=== PATIENT | male | born 1965 | race Caucasian/White ===

== ENCOUNTER 2023-12-10 06:54 | Day surgery (SDC) | payer MEDICAID ==
[2023-12-10] VITALS (11 sets, daily range): BP systolic 144–171; BP diastolic 91–110; PULSE 65–92; RESP 16; TEMP 98.2; O2SAT 92–96
[~2023-12-10] VITALS: Ht 167.6 cm; Wt 100.3 kg
[2023-12-10] MEDS ORDERED: normal saline 1,000 ML IV SCH (07:25)
[2023-12-10] MEDS ORDERED: diphenhydrAMINE 25mg capsule PO PRN (07:25)
[2023-12-10] MEDS ORDERED: nitroGLYCERIN 0.4mg SUBLingual tab SL PRN ×2 (07:25→10:50)
[2023-12-10] MEDS ORDERED: LORazepam 0.5 MG tablet PO PRN (07:25)
[2023-12-10] MEDS ORDERED: insulin Lispro (HumaLOG) vial - multi-dose SQ SCH (07:30)
[2023-12-10] MEDS ORDERED: MESSAGE TO PHARMACY PO ONE (07:30)
[2023-12-10] MEDS ORDERED: DEXTROSE 15 GM of carb/4 tabs (each vial/BOTTLE has 4 tablets) PO PRN ×2 (07:30)
[2023-12-10] MEDS ORDERED: glucagon, human recombinant 1mg kit SUBCUT PRN (07:30)
[2023-12-10] MEDS ORDERED: dextrose 50%-water 50ml dispensing syringe IV PRN ×2 (07:30)
[2023-12-10] MEDS ORDERED: IBUP-1984 PO (07:53)
[2023-12-10] MEDS ORDERED: LISI20TA28 PO (07:53)
[2023-12-10] MEDS ORDERED: ATOR20TA66 PO (07:53)
[2023-12-10 07:55] LABS: BASOPHILS % (AUTO) 0.5 % (0-1); EOSINOPHILS # (AUTO) 0.1 X10'3 (0-0.9); EOSINOPHILS % (AUTO) 2.6 % (0-6); HEMATOCRIT 44.2 % (42.0-52.0); LYMPHOCYTES # (AUTO) 1.8 X10'3 (1.1-4.8); LYMPHOCYTES % (AUTO) 31.2 % (21-51); MEAN CORPUSCULAR HEMOGLOBIN 29.4 PG (27.0-31.0); MEAN CORPUSCULAR HGB CONC 34.1 g/dL (33.0-36.5); MEAN CORPUSCULAR VOLUME 86.2 FL (78-98); MEAN PLATELET VOLUME 8.9 FL (7.4-10.4); MONOCYTES # (AUTO) 0.6 X10'3 (0-0.9); MONOCYTES % (AUTO) 9.9 % (2-12); NEUTROPHILS # (AUTO) 3.2 X10'3 (1.8-7.7); NEUTROPHILS % (AUTO) 55.8 % (42-75); PLATELET COUNT 183 X10'3 (140-440); RED BLOOD COUNT 5.12 X10'6 (4.70-6.10); RED CELL DISTRIBUTION WIDTH 13.4 % (11.5-14.5); WHITE BLOOD COUNT 5.7 X10'3 (4.5-11.0)
[2023-12-10 08:04] LABS: APTT 26 SECONDS (22-32); PROTHROMBIN TIME 10.6 SECONDS (9.0-12.0)
[2023-12-10] MEDS ORDERED: fentaNYL/PF 50MCG/1 ML 2ML syringe ONE (08:27)
[2023-12-10] MEDS ORDERED: iohexol 350MG/ML 100ml bottle IV ONE (08:27)
[2023-12-10] MEDS ORDERED: iohexol 350 MG/ML 50ML vial IV ONE ×2 (08:27→09:58)
[2023-12-10] MEDS ORDERED: midazolam 1 mg/ML 2ml injection ONE (08:27)
[2023-12-10] MEDS ORDERED: LIDOcaine 1% 30ml preserv. free vial ONE (08:27)
[2023-12-10 08:30] LABS: ALBUMIN 3.9 G/DL (3.4-5.0); ANION GAP 8 (8-16); BLOOD UREA NITROGEN 20 MG/DL (7-18); BUN/CREATININE RATIO 22.7 (10.0-20.0); CALCIUM 8.6 MG/DL (8.5-10.1); CHLORIDE 102 MMOL/L (99-107); CREATININE 0.88 MG/DL (0.60-1.10); GLUCOSE 103 MG/DL (70-104); POTASSIUM 3.7 MMOL/L (3.5-5.1); PRO BRAIN NATRIURETIC PEPTIDE 187 PG/ML (0-125); SODIUM 135 MMOL/L (135-145); TOTAL CARBON DIOXIDE 24.9 MMOL/L (24-32); eCRCL 83 ML/MIN; eGFR 89 ML/MIN
[2023-12-10] MEDS ORDERED: HYDROcodone/acetaminophen 5mg/325mg tablet PO PRN (10:50)
[2023-12-10] MEDS ORDERED: ondansetron/PF 4mg/2ml inj IV PRN (10:50)
[2023-12-10] MEDS ORDERED: OXAZEpam 15mg capsule PO PRN (10:50)
[2023-12-10] MEDS ORDERED: normal saline 1000ml 1,000 ML IV SCH (10:50)
[2023-12-10] MEDS ORDERED: acetaminophen 325mg tablet PO PRN (10:50)
[2023-12-10] MEDS ORDERED: proCHLORperazine 10 MG/2 ml inj IV PRN (10:50)
[2023-12-10] MEDS ORDERED: HYDROcodone/acetaminophen 10/325mg tab PO PRN (10:50)
[2023-12-10 12:25] LABS: HEMOGLOBIN A1C 5.3 % (4.5-6.2)
[2023-12-10] MEDS ORDERED: insulin glargine (Lantus) pen - multi-dose SQ SCH (21:00)
== END 2023-12-10 16:52 | disposition home or self-care (01) ==
LOC: SSTAY O 06:54
PROVIDERS: ATTEND Internal Medicine Cardiovascular Disease
DX: R94.39 Abnormal result of other cardiovascular function study (principal); I25.10 Atherosclerotic heart disease of native coronary artery without angina pectoris; I25.2 Old myocardial infarction; E78.5 Hyperlipidemia, unspecified; M17.11 Unilateral primary osteoarthritis, right knee; I10 Essential (primary) hypertension; J44.9 Chronic obstructive pulmonary disease, unspecified; Z87.891 Personal history of nicotine dependence; Z79.899 Other long term (current) drug therapy; Z72.89 Other problems related to lifestyle; Z79.01 Long term (current) use of anticoagulants
CPT/HCPCS: 36415; 71046; 80048; 83036; 83880; 85025; 85610; 85730; 93005; 93459; 99152; 99153; J1644; J1815; J2250; J3010; J3490; J7030; Q0163; Q9967; 93458; A6258; C1760

== ENCOUNTER 2024-01-20 12:30 | Outpatient (CLI) | payer MEDICAID ==
[~2024-01-20 12:30] MED LIST: ASPI81TA53 PO; ATOR20TA66 PO; CLOP75TA34 PO; HYDR-3972 PO; LOP12.5T PO
== END 2024-01-20 23:59 | disposition home or self-care (01) ==
LOC: RAD 12:30
PROVIDERS: ATTEND Physician Assistant Surgical
DX: I51.7 Cardiomegaly (principal); J90 Pleural effusion, not elsewhere classified
CPT/HCPCS: 71046

== ENCOUNTER 2024-01-28 05:41 | Day surgery (SDC) | payer MEDICAID ==
[~2024-01-28] VITALS: Ht 167.6 cm; Wt 101.6 kg
[2024-01-28] MEDS ORDERED: albumin 25% 100mL bottle x 1 IV PRN (06:10)
[2024-01-28] MEDS ORDERED: METO25TA6 PO (06:50)
[2024-01-28] MEDS ORDERED: CLOP-32 PO (06:50)
[2024-01-28] MEDS ORDERED: ASPI-1144 PO (06:50)
[2024-01-28] MEDS ORDERED: IBUP-1986 PO (06:50)
[2024-01-28] MEDS ORDERED: HYDR-3973 PO (06:50)
[2024-01-28 06:56] VITALS: BP 147/106; PULSE 97; RESP 16; TEMP 98.5; O2SAT 96
[2024-01-28 07:00] VITALS: RESP 16; O2SAT 96
== END 2024-01-28 08:20 | disposition home or self-care (01) ==
LOC: SSTAY O 05:41
PROVIDERS: ATTEND Internal Medicine Critical Care Medicine
DX: J90 Pleural effusion, not elsewhere classified (principal); Z53.8 Procedure and treatment not carried out for other reasons; I25.2 Old myocardial infarction; I10 Essential (primary) hypertension; E66.9 Obesity, unspecified; Z68.36 Body mass index [BMI] 36.0-36.9, adult; M17.11 Unilateral primary osteoarthritis, right knee; Z79.82 Long term (current) use of aspirin; Z79.01 Long term (current) use of anticoagulants; Z79.899 Other long term (current) drug therapy
CPT/HCPCS: 76604

== ENCOUNTER 2024-02-12 11:02 | Inpatient (IN) | payer MEDICAID ==
[~2024-02-12] VITALS: Ht 167.6 cm; Wt 97.7 kg
[~2024-02-12 11:02] MED LIST changes: +ASPI-1144 PO; -ASPI81TA53 PO; +CLOP-32 PO; -CLOP75TA34 PO; -HYDR-3972 PO; +HYDR-3973 PO; +IBUP-1986 PO; -LOP12.5T PO; +METO25TA6 PO
[2024-02-12 11:37] LABS: BASOPHILS # (AUTO) 0.1 X10'3 (0-0.2); BASOPHILS % (AUTO) 0.7 % (0-1); EOSINOPHILS # (AUTO) 0.1 X10'3 (0-0.9); EOSINOPHILS % (AUTO) 1.4 % (0-6); HEMATOCRIT 41.1 % (42.0-52.0); HEMOGLOBIN 13.2 g/dl (14.0-17.9); LYMPHOCYTES # (AUTO) 1.5 X10'3 (1.1-4.8); LYMPHOCYTES % (AUTO) 15.5 % (21-51); MEAN CORPUSCULAR HEMOGLOBIN 26.4 PG (27.0-31.0); MEAN CORPUSCULAR HGB CONC 32.2 g/dL (33.0-36.5); MEAN CORPUSCULAR VOLUME 81.8 FL (78-98); MEAN PLATELET VOLUME 8.8 FL (7.4-10.4); MONOCYTES # (AUTO) 0.6 X10'3 (0-0.9); MONOCYTES % (AUTO) 6.7 % (2-12); NEUTROPHILS # (AUTO) 7.2 X10'3 (1.8-7.7); NEUTROPHILS % (AUTO) 75.7 % (42-75); PLATELET COUNT 317 X10'3 (140-440); RED BLOOD COUNT 5.02 X10'6 (4.70-6.10); RED CELL DISTRIBUTION WIDTH 14.7 % (11.5-14.5); WHITE BLOOD COUNT 9.5 X10'3 (4.5-11.0)
[2024-02-12 11:50] LABS: ALBUMIN 3.5 G/DL (3.4-5.0); ANION GAP 12 (8-16); BLOOD UREA NITROGEN 23 MG/DL (7-18); CALCIUM 8.8 MG/DL (8.5-10.1); CHLORIDE 106 MMOL/L (99-107); CREATININE 0.96 MG/DL (0.60-1.10); GLUCOSE 134 MG/DL (70-104); SODIUM 142 MMOL/L (135-145); TOTAL CARBON DIOXIDE 23.9 MMOL/L (24-32); eCRCL 75 ML/MIN; eGFR 80 ML/MIN
[2024-02-12 14:16] LABS: D-DIMER 7.75 MG/L FEU (0-0.50)
[2024-02-12] MEDS: hydrALAZINE 20mg/ml inj. IV ONE (14:31)
[2024-02-12] MEDS: aspirin 325mg tablet PO ONE (14:31)
[2024-02-12] MEDS: nitroGLYCERIN 1gm ointment UD TP ONE (14:32)
[2024-02-12 14:38] LABS: PRO BRAIN NATRIURETIC PEPTIDE 7576 PG/ML (0-125)
[2024-02-12] MEDS ORDERED: iohexol 350MG/ML 100ml bottle IV ONE (15:50)
[2024-02-12] MEDS ORDERED: mag hydrox/Alum hydrox/simeth 30ml oral suspension PO PRN (18:30)
[2024-02-12] MEDS ORDERED: magnesium 4gm in 100ml NS 100 ML IV PRN (18:30)
[2024-02-12] MEDS ORDERED: magnesium hydroxide 30ml (MOM) UD suspension PO PRN (18:30)
[2024-02-12] MEDS ORDERED: ondansetron/PF 4mg/2ml inj IV PRN (18:30)
[2024-02-12] MEDS ORDERED: potassium Cl 20 mEq SR tablet PO PRN (18:30)
[2024-02-12] MEDS ORDERED: magnesium 2GM in 50ml NS 50 ML IV PRN (18:30)
[2024-02-12] MEDS ORDERED: magnesium Cl slow-release 64mg tablet PO PRN (18:30)
[2024-02-12] MEDS ORDERED: potassium Cl 40MEQ/1/2NS 520ml 520 ML IV PRN (18:30)
[2024-02-12] MEDS: furosemide 10 MG/1 ML 10ml inj IV SCH (18:57)
[2024-02-12] MEDS: docusate sod 100mg capsule PO SCH (20:00)
[2024-02-12] MEDS: K and/or MAG REPLACEMENT MC SCH (20:00)
[2024-02-12] MEDS: heparin, porcine 5000 units/ml vial SQ SCH (20:00)
[2024-02-12] MEDS: metoprolol tartrate 50mg tablet PO SCH (21:20)
[2024-02-12] MEDS: cefepime 2g/NS 100ml ADVANTAGE 100 ML IV ONE (21:29)
[2024-02-12 22:40] VITALS: BP 146/97; PULSE 103; RESP 17; TEMP 98.1; O2SAT 99
[2024-02-12] MEDS: morphine 2 MG/ML inj. syringe IV PRN (23:37)
[2024-02-13 06:00] VITALS: BP 150/99; PULSE 70; RESP 18; TEMP 97.7; O2SAT 97
[2024-02-13 06:33] LABS: BASOPHILS % (AUTO) 0.4 % (0-1); EOSINOPHILS # (AUTO) 0.2 X10'3 (0-0.9); EOSINOPHILS % (AUTO) 2.8 % (0-6); HEMOGLOBIN 12.7 g/dl (14.0-17.9); LYMPHOCYTES % (AUTO) 12.6 % (21-51); MEAN CORPUSCULAR HEMOGLOBIN 26.6 PG (27.0-31.0); MEAN CORPUSCULAR HGB CONC 32.5 g/dL (33.0-36.5); MEAN CORPUSCULAR VOLUME 81.8 FL (78-98); MEAN PLATELET VOLUME 8.8 FL (7.4-10.4); MONOCYTES # (AUTO) 0.8 X10'3 (0-0.9); NEUTROPHILS # (AUTO) 6.1 X10'3 (1.8-7.7); NEUTROPHILS % (AUTO) 74.2 % (42-75); PLATELET COUNT 291 X10'3 (140-440); RED BLOOD COUNT 4.76 X10'6 (4.70-6.10); RED CELL DISTRIBUTION WIDTH 14.9 % (11.5-14.5); WHITE BLOOD COUNT 8.3 X10'3 (4.5-11.0)
[2024-02-13 06:59] LABS: ALANINE AMINOTRANSFERASE 110 U/L (12-78); ALBUMIN 3.2 G/DL (3.4-5.0); ALBUMIN/GLOBULIN RATIO 0.9 (1.1-1.5); ALKALINE PHOSPHATASE 128 IU/L (46-116); ANION GAP 9 (8-16); ASPARTATE AMINO TRANSFERASE 38 U/L (10-37); BILIRUBIN,TOTAL 0.5 MG/DL (0.1-1.0); BLOOD UREA NITROGEN 22 MG/DL (7-18); BUN/CREATININE RATIO 23.4 (10.0-20.0); CALCIUM 8.5 MG/DL (8.5-10.1); CHLORIDE 104 MMOL/L (99-107); CREATININE 0.94 MG/DL (0.60-1.10); GLUCOSE 108 MG/DL (70-104); PHOSPHORUS 5.6 MG/DL (2.3-4.5); POTASSIUM 3.7 MMOL/L (3.5-5.1); SODIUM 139 MMOL/L (135-145); TOTAL CARBON DIOXIDE 26.1 MMOL/L (24-32); TOTAL PROTEIN 6.7 G/DL (6.4-8.2); eCRCL 76 ML/MIN; eGFR 82 ML/MIN
[2024-02-13] MEDS: clopidogrel 75mg tablet PO SCH (07:43)
[2024-02-13] MEDS: acetaminophen 325mg tablet PO PRN (07:44)
[2024-02-13 10:00] VITALS: BP 118/75; PULSE 93; RESP 18; TEMP 97.6; O2SAT 92
[2024-02-13] MEDS: EMPAGLIFLOZIN 10 MG TABLET PO SCH (11:57)
[2024-02-13 18:00] VITALS: BP 152/105; PULSE 101; RESP 16; TEMP 99.1; O2SAT 96
[2024-02-13] MEDS: LIDOcaine 2% Viscous 15ml cup MM PRN (19:54)
[2024-02-13] MEDS: HYDROcodone/acetaminophen 5mg/325mg tablet PO ONE (20:26)
[2024-02-13 22:00] VITALS: BP 142/96; PULSE 92; RESP 16; TEMP 97.5; O2SAT 94
[2024-02-14 03:27] LABS: BASOPHILS % (AUTO) 0.6 % (0-1); EOSINOPHILS # (AUTO) 0.3 X10'3 (0-0.9); EOSINOPHILS % (AUTO) 3.9 % (0-6); HEMATOCRIT 38.4 % (42.0-52.0); HEMOGLOBIN 12.5 g/dl (14.0-17.9); LYMPHOCYTES # (AUTO) 1.4 X10'3 (1.1-4.8); MEAN CORPUSCULAR HEMOGLOBIN 26.4 PG (27.0-31.0); MEAN CORPUSCULAR HGB CONC 32.5 g/dL (33.0-36.5); MEAN CORPUSCULAR VOLUME 81.3 FL (78-98); MEAN PLATELET VOLUME 8.7 FL (7.4-10.4); MONOCYTES # (AUTO) 0.8 X10'3 (0-0.9); MONOCYTES % (AUTO) 10.8 % (2-12); NEUTROPHILS # (AUTO) 5.2 X10'3 (1.8-7.7); NEUTROPHILS % (AUTO) 66.7 % (42-75); PLATELET COUNT 281 X10'3 (140-440); RED BLOOD COUNT 4.73 X10'6 (4.70-6.10); RED CELL DISTRIBUTION WIDTH 14.8 % (11.5-14.5); WHITE BLOOD COUNT 7.8 X10'3 (4.5-11.0)
[2024-02-14 03:32] LABS: ALANINE AMINOTRANSFERASE 106 U/L (12-78); ALBUMIN 3.2 G/DL (3.4-5.0); ALBUMIN/GLOBULIN RATIO 0.9 (1.1-1.5); ALKALINE PHOSPHATASE 118 IU/L (46-116); ANION GAP 9 (8-16); ASPARTATE AMINO TRANSFERASE 27 U/L (10-37); BILIRUBIN,TOTAL 0.4 MG/DL (0.1-1.0); BLOOD UREA NITROGEN 22 MG/DL (7-18); BUN/CREATININE RATIO 19.1 (10.0-20.0); CALCIUM 8.6 MG/DL (8.5-10.1); CHLORIDE 105 MMOL/L (99-107); CREATININE 1.15 MG/DL (0.60-1.10); GLUCOSE 116 MG/DL (70-104); MAGNESIUM 2.1 MG/DL (1.5-2.4); PHOSPHORUS 6.7 MG/DL (2.3-4.5); POTASSIUM 3.5 MMOL/L (3.5-5.1); SODIUM 144 MMOL/L (135-145); TOTAL CARBON DIOXIDE 30.2 MMOL/L (24-32); TOTAL PROTEIN 6.7 G/DL (6.4-8.2); eCRCL 62 ML/MIN; eGFR 65 ML/MIN
[2024-02-14 06:47] VITALS: BP 144/101; PULSE 98; RESP 17; TEMP 98; O2SAT 92
[2024-02-14] MEDS: atorvastatin 20mg tablet PO SCH (07:52)
[2024-02-14] MEDS: aspirin 81mg tab.chew PO SCH (07:52)
[2024-02-14] MEDS: clopidogrel 75mg tablet PO SCH (07:53)
[2024-02-14 08:00] VITALS: RESP 16
[2024-02-14] MEDS: HYDROcodone/acetaminophen 5mg/325mg tablet PO PRN (08:00)
[2024-02-14] MEDS: spironolactone 25 MG tablet PO SCH (08:01)
[2024-02-14 10:00] VITALS: BP 124/94; PULSE 92; RESP 16; TEMP 98.5; O2SAT 93
[2024-02-14] MEDS: levoFLOXACIN-Levaquin 750MG/D5 150 ML IV SCH (10:55)
[2024-02-14 11:23] VITALS: RESP 18
[2024-02-14 18:00] VITALS: BP 143/99; PULSE 101; RESP 16; TEMP 98.1; O2SAT 99
[2024-02-14 22:00] VITALS: BP 143/102; PULSE 95; RESP 16; TEMP 98.1; O2SAT 97
[2024-02-15 06:00] VITALS: BP 156/108; PULSE 91; RESP 15; TEMP 98.8; O2SAT 96
[2024-02-15 06:47] LABS: BASOPHILS % (AUTO) 0.7 % (0-1); EOSINOPHILS # (AUTO) 0.3 X10'3 (0-0.9); EOSINOPHILS % (AUTO) 4.9 % (0-6); HEMATOCRIT 39.5 % (42.0-52.0); HEMOGLOBIN 12.7 g/dl (14.0-17.9); LYMPHOCYTES # (AUTO) 1.2 X10'3 (1.1-4.8); LYMPHOCYTES % (AUTO) 16.9 % (21-51); MEAN CORPUSCULAR HEMOGLOBIN 26.2 PG (27.0-31.0); MEAN CORPUSCULAR HGB CONC 32.1 g/dL (33.0-36.5); MEAN CORPUSCULAR VOLUME 81.7 FL (78-98); MEAN PLATELET VOLUME 8.7 FL (7.4-10.4); MONOCYTES # (AUTO) 0.7 X10'3 (0-0.9); MONOCYTES % (AUTO) 9.7 % (2-12); NEUTROPHILS # (AUTO) 4.8 X10'3 (1.8-7.7); NEUTROPHILS % (AUTO) 67.8 % (42-75); PLATELET COUNT 259 X10'3 (140-440); RED BLOOD COUNT 4.84 X10'6 (4.70-6.10); RED CELL DISTRIBUTION WIDTH 14.8 % (11.5-14.5); WHITE BLOOD COUNT 7.1 X10'3 (4.5-11.0)
[2024-02-15 06:57] LABS: ALANINE AMINOTRANSFERASE 81 U/L (12-78); ALBUMIN 3.3 G/DL (3.4-5.0); ALBUMIN/GLOBULIN RATIO 0.9 (1.1-1.5); ALKALINE PHOSPHATASE 119 IU/L (46-116); ANION GAP 9 (8-16); ASPARTATE AMINO TRANSFERASE 18 U/L (10-37); BILIRUBIN,TOTAL 0.5 MG/DL (0.1-1.0); BLOOD UREA NITROGEN 20 MG/DL (7-18); BUN/CREATININE RATIO 19.4 (10.0-20.0); CALCIUM 8.8 MG/DL (8.5-10.1); CHLORIDE 101 MMOL/L (99-107); CREATININE 1.03 MG/DL (0.60-1.10); GLUCOSE 97 MG/DL (70-104); MAGNESIUM 2.2 MG/DL (1.5-2.4); POTASSIUM 3.3 MMOL/L (3.5-5.1); SODIUM 141 MMOL/L (135-145); eCRCL 70 ML/MIN; eGFR 74 ML/MIN
[2024-02-15 08:55] VITALS: RESP 18
[2024-02-15 10:00] VITALS: BP 125/88; PULSE 99; RESP 16; TEMP 98.2; O2SAT 93
[2024-02-15] MEDS: potassium Cl 20 mEq SR tablet PO PRN (17:15)
[2024-02-15 19:09] VITALS: BP 122/83; PULSE 97; RESP 16; TEMP 98.9; O2SAT 95
[2024-02-15 22:00] VITALS: BP 125/96; PULSE 69; RESP 24; TEMP 98.4; O2SAT 95
[2024-02-16 06:00] VITALS: BP 122/86; PULSE 87; RESP 18; TEMP 98.5; O2SAT 95
[2024-02-16 07:34] LABS: BASOPHILS % (AUTO) 0.4 % (0-1); EOSINOPHILS # (AUTO) 0.3 X10'3 (0-0.9); EOSINOPHILS % (AUTO) 4.5 % (0-6); HEMOGLOBIN 12.9 g/dl (14.0-17.9); LYMPHOCYTES # (AUTO) 1.2 X10'3 (1.1-4.8); LYMPHOCYTES % (AUTO) 16.2 % (21-51); MEAN CORPUSCULAR HEMOGLOBIN 26.4 PG (27.0-31.0); MEAN CORPUSCULAR HGB CONC 32.3 g/dL (33.0-36.5); MEAN CORPUSCULAR VOLUME 81.6 FL (78-98); MEAN PLATELET VOLUME 8.9 FL (7.4-10.4); MONOCYTES # (AUTO) 0.8 X10'3 (0-0.9); NEUTROPHILS # (AUTO) 5.1 X10'3 (1.8-7.7); NEUTROPHILS % (AUTO) 67.9 % (42-75); PLATELET COUNT 252 X10'3 (140-440); RED BLOOD COUNT 4.91 X10'6 (4.70-6.10); RED CELL DISTRIBUTION WIDTH 15.1 % (11.5-14.5); WHITE BLOOD COUNT 7.4 X10'3 (4.5-11.0)
[2024-02-16 08:01] LABS: ALANINE AMINOTRANSFERASE 62 U/L (12-78); ALBUMIN 3.1 G/DL (3.4-5.0); ALBUMIN/GLOBULIN RATIO 0.8 (1.1-1.5); ALKALINE PHOSPHATASE 121 IU/L (46-116); ANION GAP 9 (8-16); ASPARTATE AMINO TRANSFERASE 16 U/L (10-37); BILIRUBIN,TOTAL 0.6 MG/DL (0.1-1.0); BLOOD UREA NITROGEN 19 MG/DL (7-18); BUN/CREATININE RATIO 17.9 (10.0-20.0); CALCIUM 8.4 MG/DL (8.5-10.1); CHLORIDE 98 MMOL/L (99-107); CREATININE 1.06 MG/DL (0.60-1.10); GLUCOSE 94 MG/DL (70-104); MAGNESIUM 2.2 MG/DL (1.5-2.4); PHOSPHORUS 4.3 MG/DL (2.3-4.5); POTASSIUM 3.5 MMOL/L (3.5-5.1); SODIUM 138 MMOL/L (135-145); TOTAL CARBON DIOXIDE 31.2 MMOL/L (24-32); TOTAL PROTEIN 6.8 G/DL (6.4-8.2); eCRCL 68 ML/MIN; eGFR 72 ML/MIN
[2024-02-16 10:00] VITALS: BP 125/88; PULSE 99; RESP 16; TEMP 98; O2SAT 96
[2024-02-16] MEDS ORDERED: EMPA10TA PO (11:22)
[2024-02-16] MEDS ORDERED: FURO-150 PO (11:22)
[2024-02-16] MEDS ORDERED: SPIR25TA5 PO (11:22)
[2024-02-16] MEDS ORDERED: LEVO-65 PO ×2 (11:22→11:31)
== END 2024-02-16 12:08 | disposition home or self-care (01) | DRG 720 ==
LOC: ER 11:03 → ED HOLD 18:35 → ORTHO 4S 22:14
PROVIDERS: ADMIT Internal Medicine; ATTEND Internal Medicine
PROC: B32T1ZZ Computerized Tomography (CT Scan) of Left Pulmonary Artery using Low Osmolar Contrast (ICD-10-PCS; principal; 2024-02-12)
PROC: B3201ZZ Computerized Tomography (CT Scan) of Thoracic Aorta using Low Osmolar Contrast (ICD-10-PCS; 2024-02-12)
PROC: B32S1ZZ Computerized Tomography (CT Scan) of Right Pulmonary Artery using Low Osmolar Contrast (ICD-10-PCS; 2024-02-12)
DX: A41.50 Gram-negative sepsis, unspecified (principal); J96.01 Acute respiratory failure with hypoxia; I50.23 Acute on chronic systolic (congestive) heart failure; I11.0 Hypertensive heart disease with heart failure; J18.9 Pneumonia, unspecified organism; I25.10 Atherosclerotic heart disease of native coronary artery without angina pectoris; I82.461 Acute embolism and thrombosis of right calf muscular vein; J98.11 Atelectasis; E78.00 Pure hypercholesterolemia, unspecified; I25.2 Old myocardial infarction; Z95.1 Presence of aortocoronary bypass graft; Z79.899 Other long term (current) drug therapy; Z79.82 Long term (current) use of aspirin; Z79.02 Long term (current) use of antithrombotics/antiplatelets
CPT/HCPCS: 36415; 71045; 71275; 80048; 80053; 83605; 83735; 83880; 84100; 84484; 85025; 85379; 87040; 87077; 87081; 93005; 93306; 93971; 96374; 96375; 99285; G0378; J0360; J0692; J1940; J1956; J2270; J3490; J7040; Q9967

== ENCOUNTER 2024-03-28 09:17 | Inpatient (IN) | payer MEDICAID ==
[~2024-03-28] VITALS: Ht 167.6 cm; Wt 95.0 kg
[~2024-03-28 09:17] MED LIST changes: +EMPA10TA PO; +FURO-150 PO; -HYDR-3973 PO; -IBUP-1986 PO; +LEVO-65 PO; +SPIR25TA5 PO
[2024-03-28 09:56] LABS: BASOPHILS % (AUTO) 0.5 % (0-1); EOSINOPHILS # (AUTO) 0.2 X10'3 (0-0.9); HEMATOCRIT 46.5 % (42.0-52.0); HEMOGLOBIN 14.7 g/dl (14.0-17.9); LYMPHOCYTES # (AUTO) 1.3 X10'3 (1.1-4.8); LYMPHOCYTES % (AUTO) 22.2 % (21-51); MEAN CORPUSCULAR HEMOGLOBIN 25.5 PG (27.0-31.0); MEAN CORPUSCULAR HGB CONC 31.7 g/dL (33.0-36.5); MEAN CORPUSCULAR VOLUME 80.5 FL (78-98); MEAN PLATELET VOLUME 8.8 FL (7.4-10.4); MONOCYTES # (AUTO) 0.6 X10'3 (0-0.9); MONOCYTES % (AUTO) 10.3 % (2-12); NEUTROPHILS # (AUTO) 3.7 X10'3 (1.8-7.7); PLATELET COUNT 199 X10'3 (140-440); RED BLOOD COUNT 5.78 X10'6 (4.70-6.10); RED CELL DISTRIBUTION WIDTH 16.5 % (11.5-14.5); WHITE BLOOD COUNT 5.8 X10'3 (4.5-11.0)
[2024-03-28 10:07] LABS: ALBUMIN 3.9 G/DL (3.4-5.0); ANION GAP 8 (8-16); BLOOD UREA NITROGEN 21 MG/DL (7-18); BUN/CREATININE RATIO 17.1 (10.0-20.0); CALCIUM 8.8 MG/DL (8.5-10.1); CHLORIDE 103 MMOL/L (99-107); CREATININE 1.23 MG/DL (0.60-1.10); GLUCOSE 102 MG/DL (70-104); POTASSIUM 3.4 MMOL/L (3.5-5.1); PRO BRAIN NATRIURETIC PEPTIDE 1444 PG/ML (0-125); SODIUM 140 MMOL/L (135-145); TOTAL CARBON DIOXIDE 29.4 MMOL/L (24-32); eCRCL 58 ML/MIN; eGFR 60 ML/MIN
[2024-03-28] MEDS: POTASSIUM BICARB 20meq eff tab 20 MEQ TABLET.EFF PO ONE (14:37)
[2024-03-28] MEDS ORDERED: potassium Cl 20 mEq SR tablet PO PRN ×2 (15:30)
[2024-03-28] MEDS ORDERED: ondansetron/PF 4mg/2ml inj IV PRN (15:30)
[2024-03-28] MEDS ORDERED: acetaminophen 325mg tablet PO PRN (15:30)
[2024-03-28] MEDS ORDERED: magnesium Cl slow-release 64mg tablet PO PRN (15:30)
[2024-03-28] MEDS ORDERED: magnesium 4gm in 100ml NS 100 ML IV PRN (15:30)
[2024-03-28] MEDS ORDERED: magnesium 2GM in 50ml NS 50 ML IV PRN (15:30)
[2024-03-28] MEDS ORDERED: potassium Cl 40MEQ/1/2NS 520ml 520 ML IV PRN (15:30)
[2024-03-28] MEDS ORDERED: morphine 2 MG/ML inj. syringe IV PRN ×2 (15:30)
[2024-03-28 18:51] LABS: URINE AMPHETAMINE SCREEN NEGATIVE (Neg); URINE BARBITUATE SCREEN NEGATIVE (Neg); URINE BENZODIAZEPINES SCREEN NEGATIVE (Neg); URINE CANNABINOID SCREEN NEGATIVE (Neg); URINE COCAINE SCREEN NEGATIVE (Neg); URINE METHADONE SCREEN NEGATIVE (Neg); URINE OPIATE SCREEN NEGATIVE (Neg); URINE PHENCYCLIDINE SCREEN NEGATIVE (Neg)
[2024-03-28] MEDS: aspirin 81mg, enteric-coated 1 TAB TABLET.DR PO SCH (19:30)
[2024-03-28] MEDS: clopidogrel 75mg tablet PO SCH (19:30)
[2024-03-28] MEDS: metoprolol tartrate 25mg tablet PO ONE (19:31)
[2024-03-28] MEDS: heparin, porcine 5000 units/ml vial SQ SCH (20:00)
[2024-03-28] MEDS: furosemide 40mg/4ml inj IV SCH (20:32)
[2024-03-28 21:15] VITALS: BP 135/85; PULSE 87; RESP 21; TEMP 98.4; O2SAT 95
[2024-03-28 22:00] VITALS: RESP 26; O2SAT 96
[2024-03-29 02:00] VITALS: BP 140/93; PULSE 86; RESP 26; TEMP 98.5; O2SAT 96
[2024-03-29] MEDS: acetaminophen 325mg tablet PO PRN (03:03)
[2024-03-29 06:39] LABS: BASOPHILS % (AUTO) 0.4 % (0-1); EOSINOPHILS # (AUTO) 0.3 X10'3 (0-0.9); EOSINOPHILS % (AUTO) 3.8 % (0-6); HEMATOCRIT 44.7 % (42.0-52.0); HEMOGLOBIN 14.4 g/dl (14.0-17.9); LYMPHOCYTES # (AUTO) 1.3 X10'3 (1.1-4.8); MEAN CORPUSCULAR HEMOGLOBIN 25.9 PG (27.0-31.0); MEAN CORPUSCULAR HGB CONC 32.2 g/dL (33.0-36.5); MEAN CORPUSCULAR VOLUME 80.4 FL (78-98); MEAN PLATELET VOLUME 8.9 FL (7.4-10.4); MONOCYTES # (AUTO) 0.6 X10'3 (0-0.9); MONOCYTES % (AUTO) 9.2 % (2-12); NEUTROPHILS # (AUTO) 4.5 X10'3 (1.8-7.7); NEUTROPHILS % (AUTO) 66.6 % (42-75); PLATELET COUNT 165 X10'3 (140-440); RED BLOOD COUNT 5.55 X10'6 (4.70-6.10); RED CELL DISTRIBUTION WIDTH 16.9 % (11.5-14.5); WHITE BLOOD COUNT 6.7 X10'3 (4.5-11.0)
[2024-03-29 06:50] LABS: ALANINE AMINOTRANSFERASE 27 U/L (12-78); ALBUMIN 3.5 G/DL (3.4-5.0); ALKALINE PHOSPHATASE 97 IU/L (46-116); ANION GAP 5 (8-16); ASPARTATE AMINO TRANSFERASE 17 U/L (10-37); BILIRUBIN,TOTAL 0.4 MG/DL (0.1-1.0); BLOOD UREA NITROGEN 22 MG/DL (7-18); CALCIUM 8.6 MG/DL (8.5-10.1); CHLORIDE 104 MMOL/L (99-107); GLUCOSE 110 MG/DL (70-104); POTASSIUM 3.5 MMOL/L (3.5-5.1); SODIUM 139 MMOL/L (135-145); TOTAL PROTEIN 6.9 G/DL (6.4-8.2); eCRCL 72 ML/MIN; eGFR 76 ML/MIN
[2024-03-29 07:00] VITALS: BP 143/94; PULSE 80; RESP 20; TEMP 97.2; O2SAT 96
[2024-03-29 08:00] VITALS: RESP 16; O2SAT 96
[2024-03-29] MEDS ORDERED: FURO-150 PO (11:40)
== END 2024-03-29 13:40 | disposition home or self-care (01) | DRG 194 ==
LOC: ER 09:17 → ED HOLD 15:35 → PCU 3S 21:02
PROVIDERS: ADMIT Internal Medicine; ATTEND Internal Medicine
DX: I11.0 Hypertensive heart disease with heart failure (principal); Z95.1 Presence of aortocoronary bypass graft; E78.00 Pure hypercholesterolemia, unspecified; I50.23 Acute on chronic systolic (congestive) heart failure; E78.5 Hyperlipidemia, unspecified; I25.10 Atherosclerotic heart disease of native coronary artery without angina pectoris; Z79.84 Long term (current) use of oral hypoglycemic drugs; Z79.899 Other long term (current) drug therapy
CPT/HCPCS: 36415; 71045; 80048; 80053; 80305; 83605; 83735; 83880; 84484; 85025; 87040; 93005; 93308; 99285; G0378; J1940